=== PATIENT | female | born 1970 | race Caucasian/White ===

== ENCOUNTER 2019-02-05 03:58 | Emergency (ER) | payer OTHER ==
[~2019-02-05] VITALS: Ht 165.1 cm; Wt 83.9 kg
[~2019-02-05 03:58] MED LIST: PHEN37.591
[2019-02-05] MEDS ORDERED: MAGNESIUM SULFATE 2 GM in IV DEXTROSE 5% 100 ML IV ONE (04:15)
[2019-02-05] MEDS ORDERED: methylPREDNISolone SOD SUCC 125 MG/2 ML VIAL IV ONE (04:15)
[2019-02-05] MEDS ORDERED: IPRATROPIUM BROMIDE 0.5 MG/2.5 ML NEBU NEB ONE (04:15)
[2019-02-05] MEDS ORDERED: ALBUTEROL SULFATE 2.5 MG/3 ML NEBU NEB ONE ×2 (04:15→06:00)
--- NOTE | 2019-02-05 04:15 | NUR ---
Patient ambulated with stable gait. Speech is clear, speaks in complete sentences. A/Ox4. No neuro deficits. Patient came for c/o her asthma flare-up which started x 3 days ago; worsening symptoms this morning. Patient stated that she has been prescribed an inhaler to use at home, but has misplaced it. Audible wheezes, and vigorous coughing upon assessment. No cardiovascular distress noted. No GI/ distress. Patient in bed at lowest position, sr upx2, call light within reach. Fall precautions implemented per protocol,.
[2019-02-05] MEDS ORDERED: ALBUTEROL SULFATE 2.5 MG/3 ML NEBU ONE ×2 (04:22→06:08)
[2019-02-05] MEDS ORDERED: IPRATROPIUM BROMIDE 0.5 MG/2.5 ML NEBU ONE (04:22)
[2019-02-05] MEDS ORDERED: MAGNESIUM SULFATE 1 GM/2 ML VIAL ONE ×2 (04:28→04:29)
[2019-02-05] MEDS ORDERED: methylPREDNISolone SOD SUCC 125 MG/2 ML VIAL ONE (04:28)
--- NOTE | 2019-02-05 04:30 | NUR ---
After successfully inserting IV in her RHAND, patient started panicking and refused to continue with IV medication administration. IV removed, ERMD notified.
[2019-02-05] MEDS ORDERED: predniSONE 20 MG TABLET ONE (04:41)
[2019-02-05] MEDS ORDERED: predniSONE 20 MG TABLET PO ONE (04:45)
--- NOTE | 2019-02-05 06:10 | NUR ---
RT called for second breathing tx
[2019-02-05 07:06] VITALS: BP 140/83
--- NOTE | 2019-02-05 07:06 | NUR ---
Patient discharged to home in stable conditon. Written and verbal after care instructions given. Patient verbalizes understanding of instructions. Patient states she feels much better, no audible wheezes. Patient ambulated with stable gait.
== END 2019-02-05 07:07 | disposition home or self-care (01) ==
LOC: ER 04:00
DX: J45.901 Unspecified asthma with (acute) exacerbation (principal); Z88.8 Allergy status to other drugs, medicaments and biological substances; Z79.899 Other long term (current) drug therapy
CPT/HCPCS: 94640; 94644; 99285; J7512; A4663; J2930; J3475; J3590

== ENCOUNTER 2019-08-01 07:27 | Emergency (ER) | payer OTHER ==
[~2019-08-01] VITALS: Ht 165.1 cm; Wt 86.2 kg
[2019-08-01] MEDS ORDERED: ALBUTEROL SULFATE 2.5 MG/3 ML NEBU ONE (07:37)
[2019-08-01] MEDS ORDERED: IPRATROPIUM BROMIDE 0.5 MG/2.5 ML NEBU ONE (07:37)
[2019-08-01] MEDS ORDERED: ALBU18HF2 INH (07:38)
--- NOTE | 2019-08-01 07:38 | NUR ---
Pt states taking 60mg of her own Prednisone prior to coming to ER.
[2019-08-01] MEDS ORDERED: IPRATROPIUM BROMIDE 0.5 MG/2.5 ML NEBU NEB ONE (07:45)
[2019-08-01] MEDS ORDERED: ALBUTEROL SULFATE 2.5 MG/3 ML NEBU NEB ONE (07:45)
--- NOTE | 2019-08-01 08:07 | NUR ---
Patient discharged to home in stable conditon. Written and verbal after care instructions given. Patient verbalizes understanding of instructions.pt says feels better, wants to go back to work.
== END 2019-08-01 08:09 | disposition home or self-care (01) ==
LOC: ER 07:27
DX: J45.901 Unspecified asthma with (acute) exacerbation (principal); Z88.1 Allergy status to other antibiotic agents; Z79.899 Other long term (current) drug therapy
CPT/HCPCS: A4663; J3590

== ENCOUNTER 2019-09-10 07:11 | Emergency (ER) | payer OTHER ==
[~2019-09-10] VITALS: Ht 165.1 cm; Wt 86.2 kg
[~2019-09-10 07:11] MED LIST changes: +ALBU18HF2 INH
--- NOTE | 2019-09-10 07:29 | NUR ---
Patient ambulated with stable gait. Speech is clear, speaks in complete sentences. A/Ox4. No acute neuro deficits. Patient came for c/o unresolved asthma symptoms, and cough for about a week now. Patient thinks she may have the flu. Respiratory even and unlabored, no signs of increased work of breathing. No acute cardiovascular distress noted, all pulses palpable denies any cp. Denies n/v/d. Patient in bed at lowest position, sr upx2, call light within reach. Fall precautions implemented per protocol.
[2019-09-10] MEDS ORDERED: IPRATROPIUM BROMIDE 0.5 MG/2.5 ML NEBU ONE ×2 (07:41→08:03)
[2019-09-10] MEDS ORDERED: ALBUTEROL SULFATE 2.5 MG/3 ML NEBU ONE ×2 (07:41→08:03)
[2019-09-10] MEDS ORDERED: ALBUTEROL SULFATE 2.5 MG/3 ML NEBU NEB ONE ×2 (07:45→08:00)
[2019-09-10] MEDS ORDERED: IPRATROPIUM BROMIDE 0.5 MG/2.5 ML NEBU NEB ONE ×2 (07:45→08:00)
--- NOTE | 2019-09-10 08:44 | NUR ---
Patient discharged to home in stable conditon. Written and verbal after care instructions given. Patient verbalizes understanding of instructions. Patient tolerated br.tx. well. Lung sounds clear, patient ambulated with stable gait.
[2019-09-10 08:46] VITALS: BP 141/93
== END 2019-09-10 08:46 | disposition home or self-care (01) ==
LOC: ER 07:13
DX: J06.9 Acute upper respiratory infection, unspecified (principal); J45.909 Unspecified asthma, uncomplicated; Z88.1 Allergy status to other antibiotic agents; Z79.899 Other long term (current) drug therapy
CPT/HCPCS: A4663; J3590

== ENCOUNTER 2019-09-18 10:20 | Emergency (ER) | payer OTHER ==
[~2019-09-18] VITALS: Ht 165.1 cm; Wt 86.2 kg
[2019-09-18] MEDS ORDERED: predniSONE 20 MG TABLET PO ONE (10:30)
[2019-09-18] MEDS ORDERED: IPRATROPIUM BROMIDE 0.5 MG/2.5 ML NEBU NEB ONE (10:30)
[2019-09-18] MEDS ORDERED: BENZONATATE 100 MG CAPSULE PO ONE (10:30)
[2019-09-18] MEDS ORDERED: ALBUTEROL SULFATE 2.5 MG/3 ML NEBU NEB ONE (10:30)
[2019-09-18] MEDS ORDERED: ALBUTEROL SULFATE 2.5 MG/3 ML NEBU ONE (10:32)
[2019-09-18] MEDS ORDERED: IPRATROPIUM BROMIDE 0.5 MG/2.5 ML NEBU ONE (10:32)
--- NOTE | 2019-09-18 10:36 | NUR ---
PT IS IN ROOM #1B. DR VALLEJO EVALUATED THE PT.
[2019-09-18] MEDS ORDERED: BENZONATATE 100 MG CAPSULE ONE (10:38)
[2019-09-18] MEDS ORDERED: predniSONE 20 MG TABLET ONE (10:39)
--- NOTE | 2019-09-18 12:29 | NUR ---
PT WAS RE-EVALUATED BY DR VALLEJO. PT WAS D/C'd TO HOME. D/C INSTRUCTIONS GIVEN TO THE PT.
[2019-09-18 12:31] VITALS: BP 151/84
== END 2019-09-18 12:32 | disposition home or self-care (01) ==
LOC: ER 10:20
DX: J45.901 Unspecified asthma with (acute) exacerbation (principal); Z88.1 Allergy status to other antibiotic agents; Z79.899 Other long term (current) drug therapy
CPT/HCPCS: 94644; 99285; J7512; A4663; J3590

== ENCOUNTER 2019-10-20 09:26 | Emergency (ER) | payer OTHER ==
[~2019-10-20] VITALS: Ht 165.1 cm; Wt 86.2 kg
[2019-10-20] MEDS ORDERED: ALBUTEROL SULFATE 2.5 MG/3 ML NEBU NEB ONE ×2 (09:30→11:00)
[2019-10-20] MEDS ORDERED: predniSONE 20 MG TABLET PO ONE (09:30)
--- NOTE | 2019-10-20 09:35 | NUR ---
PT IS IN ROOM #2A. DR VALLEJO EVALUATED THE PT.
[2019-10-20] MEDS ORDERED: ALBUTEROL SULFATE 2.5 MG/3 ML NEBU ONE ×2 (09:40→11:10)
[2019-10-20] MEDS ORDERED: predniSONE 20 MG TABLET ONE (09:44)
--- NOTE | 2019-10-20 09:53 | NUR ---
Herbert ryder in EDM - 10/20/19 at 0956 by RYLIE Patient discharged to home in stable conditon. Written and verbal after care instructions given. Patient verbalizes understanding of instructions.pt walks in steady gait.
[2019-10-20] MEDS ORDERED: IPRATROPIUM BROMIDE 0.5 MG/2.5 ML NEBU NEB ONE (11:00)
[2019-10-20] MEDS ORDERED: IPRATROPIUM BROMIDE 0.5 MG/2.5 ML NEBU ONE (11:10)
[2019-10-20] MEDS ORDERED: ALBUTEROL SULFATE 2.5 MG/ 0.5 ML NEBU ONE (11:10)
--- NOTE | 2019-10-20 12:49 | NUR ---
PT WAS D/C'd TO HOME AFTER DR VALLEJO EVALUATION. D/C INSTRUCTIONS GIVEN TO THE PT.
[2019-10-20 12:50] VITALS: BP 132/78
== END 2019-10-20 12:51 | disposition home or self-care (01) ==
LOC: ER 09:26
DX: J45.901 Unspecified asthma with (acute) exacerbation (principal); Z88.1 Allergy status to other antibiotic agents; Z79.899 Other long term (current) drug therapy
CPT/HCPCS: 94644; 94645; 99285; J7512; A4663; J3590

== ENCOUNTER 2020-01-05 05:18 | Emergency (ER) | payer OTHER ==
[~2020-01-05] VITALS: Ht 167.6 cm; Wt 77.1 kg
--- NOTE | 2020-01-05 05:27 | NUR ---
Pt presented to ER C/O cough/asthma x2 days A/Ox4. Able to speak in complete sentences. Follows commands No cardiovascular distress noted Denies pain at this time Respiration even and unlabored Ambulates with steady gait SR up for safety. Bed locked, lowest position. Instructed patient to call nurse for assistance Monitored accordingly Will continue to monitor
--- NOTE | 2020-01-05 05:38 | NUR ---
Dr. Cisneros at bedside for MSE
[2020-01-05] MEDS ORDERED: IPRATROPIUM BROMIDE 0.5 MG/2.5 ML NEBU NEB ONE ×3 (05:45→06:45)
[2020-01-05] MEDS ORDERED: IPRATROPIUM BROMIDE 0.5 MG/2.5 ML NEBU ONE ×2 (05:45→06:49)
[2020-01-05] MEDS ORDERED: predniSONE 20 MG TABLET PO ONE (05:45)
[2020-01-05] MEDS ORDERED: ALBUTEROL SULFATE 2.5 MG/3 ML NEBU NEB ONE ×3 (05:45→06:45)
[2020-01-05] MEDS ORDERED: ALBUTEROL SULFATE 2.5 MG/3 ML NEBU ONE ×2 (05:45→06:49)
[2020-01-05] MEDS ORDERED: predniSONE 20 MG TABLET ONE (05:47)
--- NOTE | 2020-01-05 07:09 | NUR ---
Report given to CHAD Ching
--- NOTE | 2020-01-05 07:40 | NUR ---
Patient discharged to home in stable condition. Written and verbal after care instructions given. Patient verbalizes understanding of instructions. Stressed follow up or return to ER for worsening s/s.
== END 2020-01-05 07:40 | disposition home or self-care (01) ==
LOC: ER 05:21
DX: J45.909 Unspecified asthma, uncomplicated (principal)
CPT/HCPCS: 94640; 94644; 99284; J7512; J3590

== ENCOUNTER 2020-02-21 00:18 | Emergency (ER) | payer OTHER ==
[~2020-02-21] VITALS: Ht 162.6 cm; Wt 68.0 kg
--- NOTE | 2020-02-21 00:29 | NUR ---
Dr Castillo at bedside for MSE.
[2020-02-21] MEDS ORDERED: ALBUTEROL SULFATE 2.5 MG/3 ML NEBU NEB ONE (00:30)
[2020-02-21] MEDS ORDERED: predniSONE 10 MG TABLET PO ONE (00:30)
[2020-02-21] MEDS ORDERED: IPRATROPIUM BROMIDE 0.5 MG/2.5 ML NEBU NEB ONE (00:30)
[2020-02-21] MEDS ORDERED: predniSONE 20 MG TABLET ONE (00:35)
[2020-02-21] MEDS ORDERED: ALBUTEROL SULFATE 2.5 MG/3 ML NEBU ONE (00:39)
[2020-02-21] MEDS ORDERED: IPRATROPIUM BROMIDE 0.5 MG/2.5 ML NEBU ONE (00:39)
--- NOTE | 2020-02-21 00:40 | NUR ---
RT at bedside to initiate breathing tx.
--- NOTE | 2020-02-21 01:04 | NUR ---
Pt is currently on hour-long breathing treatment, verbalized, "Im slowly feeling better." Warm blankets provided and allowed patient to relax.
--- NOTE | 2020-02-21 01:50 | NUR ---
Pt verbalized that she is feeling better and would like to go home. Dr. Castillo made aware and patient cleared for DC to home. Written and verbal after care instructions given. Patient verbalizes understanding of instructions. Stressed follow up or return to ER for worsening s/s. Ambulated outof ER in steady gait, stable condition.
[2020-02-21 02:22] VITALS: BP 155/87
== END 2020-02-21 01:50 | disposition home or self-care (01) ==
LOC: ER 00:21
DX: R07.89 Other chest pain (principal); J45.901 Unspecified asthma with (acute) exacerbation; R03.0 Elevated blood-pressure reading, without diagnosis of hypertension
CPT/HCPCS: 94644; 99285; J7512; A4663; J3590

== ENCOUNTER 2020-03-15 02:57 | Emergency (ER) | payer OTHER ==
[~2020-03-15] VITALS: Ht 165.1 cm; Wt 77.1 kg
[2020-03-15] MEDS ORDERED: predniSONE 20 MG TABLET PO ONE (03:45)
[2020-03-15] MEDS ORDERED: HYDROCODONE/APAP 5-325MG TABLET PO ONE (03:45)
[2020-03-15] MEDS ORDERED: ALBUTEROL SULFATE 8 GM HFA.AER.AD IH ONE (03:45)
[2020-03-15] MEDS ORDERED: HYDROCODONE/APAP 5-325MG TABLET ONE (03:49)
[2020-03-15] MEDS ORDERED: predniSONE 20 MG TABLET ONE (03:49)
[2020-03-15] MEDS ORDERED: ONDANSETRON ODT 4 MG TAB.RAPDIS ONE (03:50)
[2020-03-15] MEDS ORDERED: ONDANSETRON ODT 4 MG TAB.RAPDIS SL ONE (04:00)
[2020-03-15 04:01] VITALS: BP 193/116
== END 2020-03-15 04:01 | disposition home or self-care (01) ==
LOC: ER 03:04
DX: J45.909 Unspecified asthma, uncomplicated (principal); G44.209 Tension-type headache, unspecified, not intractable; F41.9 Anxiety disorder, unspecified; I10 Essential (primary) hypertension
CPT/HCPCS: 99284; J7512; A4663; J3535; Q0162

== ENCOUNTER 2020-08-03 01:23 | Emergency (ER) | payer OTHER ==
[~2020-08-03] VITALS: Ht 165.1 cm; Wt 81.6 kg
[~2020-08-03 01:23] MED LIST changes: -PHEN37.591
[2020-08-03] MEDS ORDERED: methylPREDNISolone SOD SUCC 125 MG/2 ML VIAL IV ONE (02:00)
[2020-08-03] MEDS ORDERED: MAGNESIUM SULFATE 2 GM in IV DEXTROSE 5% 100 ML IV ONE (02:00)
[2020-08-03] MEDS ORDERED: ALBUTEROL SULFATE 2.5 MG/3 ML NEBU NEB ONE (02:00)
[2020-08-03] MEDS ORDERED: IPRATROPIUM BROMIDE 0.5 MG/2.5 ML NEBU NEB ONE (02:00)
--- NOTE | 2020-08-03 02:01 | NUR ---
Patient refused EKG. ER aware
[2020-08-03] MEDS ORDERED: predniSONE 20 MG TABLET ONE (02:09)
[2020-08-03] MEDS ORDERED: IPRATROPIUM BROMIDE 0.5 MG/2.5 ML NEBU ONE (02:11)
[2020-08-03] MEDS ORDERED: ALBUTEROL SULFATE 2.5 MG/3 ML NEBU ONE (02:11)
[2020-08-03] MEDS ORDERED: predniSONE 20 MG TABLET PO ONE (02:15)
[2020-08-03 03:18] VITALS: BP 156/105
== END 2020-08-03 03:19 | disposition home or self-care (01) ==
LOC: ER 01:25
DX: J44.1 Chronic obstructive pulmonary disease with (acute) exacerbation (principal); R00.0 Tachycardia, unspecified; R03.0 Elevated blood-pressure reading, without diagnosis of hypertension
CPT/HCPCS: 71045; 94644; 99285; J7512; 93005; J3590